=== PATIENT | female | born 1985 | race Caucasian/White ===

== ENCOUNTER 2021-08-24 20:20 | Emergency (ER) | payer OTHER, SELFPAY ==
[2021-08-24 20:22] VITALS: BP 137/100; PULSE 70; RESP 20; TEMP 36.2; O2SAT 100
[2021-08-24 20:39] LABS: Basophils Percent Auto 0.2 % (0.2-1.2); Hematocrit 40.3 % (37.0-47.0); Hemoglobin 13.2 g/dL (12.0-15.0); Immature Granulocyte Absolute 0.01 K/mm3 (0.00-0.031); Immature Granulocyte Percent A 0.2 % (0-0.5); Lymphocytes Absolute Auto 1.23 K/mm3 (0.9-3.2); Lymphocytes Percent Auto 18.7 % (18.3-44.2); Mean Corpuscular HGB Conc 32.8 g/dl (32-36); Mean Corpuscular Volume 91.6 fl (80-100); Mean Platelet Volume 9.7 fl (7.4-10.4); Monocytes Absolute Auto 0.6 K/mm3 (0.1-0.6); Neutrophils Absolute Auto 4.7 K/mm3 (1.3-6.7); Neutrophils Percent Auto 71.9 % (45.5-73.1); Platelet Count Result 190 k/mm3 (150-375); Red Cell Distribution Width 13.7 % (11.5-14.5); White Blood Count 6.6 K/mm3 (4.5-10.0)
[2021-08-24 20:49] LABS: Alanine Aminotransferase 17 U/L (6-35); Albumin Level 4.5 g/dL (3.5-5.1); Alkaline Phosphatase 84 U/L (38-126); Anion Gap 7 mmol/L (8-16); Aspartate Amino Transferase 22 U/L (14-36); Bilirubin,Total 0.2 mg/dL (0.2-1.3); Blood Urea Nitrogen 14 mg/dL (7-17); Calcium 8.9 mg/dL (8.4-10.2); Carbon Dioxide 20 mmol/L (22-30); Chloride 109 mmol/L (98-107); Estimated Glomerular Filt Rate > 60; Glucose 99 mg/dL (65-110); Lipase 44 U/L (23-300); Potassium 3.8 mmol/L (3.4-5.0); Sodium 136 mmol/L (137-145)
[2021-08-24 21:18] LABS: Appearance Urine Clear (Clear); Bilirubin Urine Negative (Negative); Color Urine Yellow (Yellow); Glucose Urine UA Negative (Negative); Ketones Urine 1+ mg/dL (Negative); Leukocyte Esterase Ur Negative LEU/UL (Negative); Nitrate Urine Negative (Negative); Protein Urine Trace mg/dL (Negative); Specific Grav Ur 1.025 (1.001-1.035); Urobilinogen Urine 0.2 mg/dL (<2.0)
[2021-08-24 21:23] LABS: Bacteria Urine Trace /hpf; Mucus Urine Heavy /lpf; RBC Urine 0-2 /hpf (0-2); Squamous Epithelial Cell Urine Many /hpf (Few); WBC Urine 0-3 /hpf
[2021-08-24 21:26] LABS: Add Urine Microscopic? YES; Blood Urine Trace-Intact (Negative)
[2021-08-24] MEDS: ONDANSETRON INJ 4 MG/2 ML VIAL IV PUSH (22:36)
[2021-08-24] MEDS: SODIUM CHLORIDE 0.9% IV 1,000 ML 999 ML IV CONT (22:36)
[2021-08-24 22:37] VITALS: BP 110/71; PULSE 57; RESP 18; O2SAT 100
--- NOTE | 2021-08-24 22:48 | ED.NAVMDI ---
HPI - Nausea/Vomiting/Diarrhea General Chief complaint: Nausea/Vomiting/Diarrhea Stated complaint: nausea, vomitting Time Seen by Provider: 08/24/21 22:19 History of Present Illness HPI Narrative: 36-year-old female presents emergency room for evaluation of vomiting and diarrhea. Patient states that she was nauseated last night, woke up this morning had multiple episodes of nonbloody nonbilious vomiting. Patient states that she has been experiencing some abdominal cramping. Denies any dysuria or fever. Related Data Home Medications Medication Instructions Recorded Confirmed propranolol 80 mg tablet 80 mg PO BID 01/04/19 01/04/19 Allergies Allergy/AdvReac Type Severity Reaction Status Date / Time metronidazole Allergy Severe Hives / Verified 08/24/21 20:24 Red Face adhesive tape Allergy Unknown Rash Verified 08/24/21 20:24 lactose AdvReac Severe Diarrhea Verified 08/24/21 20:24 Review of Systems Review of Systems: CONSTITUTIONAL: Denies fever, chills, or sweats. EYES: Denies visual changes, redness, or discharge. ENT: Denies rhinorrhea, congestion, sore throat, or otalgia. CARDIOVASCULAR: Denies chest pain, palpitations, or edema. RESPIRATORY: Denies cough or dyspnea. GASTROINTESTINAL: Reports abdominal pain, nausea, vomiting, or diarrhea. GENITOURINARY: Denies dysuria or hematuria. SKIN: Denies rash or itching. MUSCULOSKELETAL: Denies back pain, joint pain, or myalgia. NEUROLOGIC: Denies headache, numbness, dizziness, or weakness. PSYCHIATRIC: Denies anxiety or depression. PMFSH Past Medical History Medical History Kidney stone Surgical History Surgical History History of appendectomy Social History Social History Smoking status: Never smoker Gender identity (if verbalized by the patient): Female Exam Narrative: GENERAL: Well-appearing, well-nourished, no physical limitations, and in no acute distress. HEAD: Normocephalic, atraumatic. EYES: Conjunctivae normal, PERRLA and EOMI. CHEST: Clear to auscultation. No respiratory distress. No wheezes rales or rhonchi. No tenderness. HEART: Regular rate and rhythm. No murmur heard. Normal peripheral pulses. ABDOMEN: Soft, generalized tenderness, nondistended, normal active bowel sounds. BACK: No CVA tenderness EXTREMITIES: Normal range of motion. No edema. No clubbing or cyanosis SKIN: Warm, dry, no rash. No noted wounds NEURO: No focal deficits. Alert and oriented x3. MAEW. CN's II-XI intact bilaterally, normal gait PSYCH: Cooperative. Normal mood and affect. Course Vital Signs Vital signs: Vital Signs Temperature 36.2 C L 08/24/21 20:22 Pulse Rate 70 08/24/21 20:22 Respiratory Rate 20 08/24/21 20:22 Blood Pressure 137/100 H 08/24/21 20:22 Pulse Oximetry 100 08/24/21 20:22 Oxygen Delivery Room Air 08/24/21 20:22 Temperature 36.2 C L 08/24/21 20:22 Pulse Rate 57 L 08/24/21 22:37 Respiratory Rate 18 08/24/21 22:37 Blood Pressure 110/71 08/24/21 22:37 Pulse Oximetry 100 08/24/21 22:37 Oxygen Delivery Room Air 08/24/21 22:37 MDM - Nausea/Vomiting/Diarrhea Lab Data Result diagrams: 08/24/21 20:34 08/24/21 20:34 Labs: Lab Results 08/24/21 08/24/21 08/24/21 Range/Units 20:34 20:34 21:11 WBC 6.6 (4.5-10.0) K/mm3 RBC 4.40 (4.2-5.4) M/mm3 Hgb 13.2 (12.0-15.0) g/dL Hct 40.3 (37.0-47.0) % MCV 91.6 (80-100) fl MCH 30.0 (26-34) pg MCHC 32.8 (32-36) g/dl RDW 13.7 (11.5-14.5) % Plt Count 190 (150-375) k/mm3 MPV 9.7 (7.4-10.4) fl Immature Gran % (Auto) 0.2 (0-0.5) % Neut % (Auto) 71.9 (45.5-73.1) % Lymph % (Auto) 18.7 (18.3-44.2) % Stephenson % (Auto) 9.0 H (2.6-8.5) % Eos % (Auto) 0.0 (0-4.4) % Baso % (Auto) 0.2 (0.2-1.2) % Lymph #
[2021-08-24] MEDS: DICYCLOMINE HCL INJ 20 MG/2 ML VIAL IM (23:02)
[2021-08-24] MEDS: PANTOPRAZOLE SODIUM IV 40 MG VIAL IV PUSH (23:02)
[2021-08-24 23:51] VITALS: BP 105/66; PULSE 54; RESP 18; O2SAT 99
== END 2021-08-24 23:52 | disposition home or self-care (01) ==
PROVIDERS: Emergency Medicine; Emergency Provider Nurse Practitioner Family; PCP Family Medicine
DX: K52.9 Noninfective gastroenteritis and colitis, unspecified (principal); Z87.442 Personal history of urinary calculi
CPT/HCPCS: 36415; 80053; 81001; 81025; 83690; 85025; 96361; 96372; 96374; 96375; 99284; C9113; J0500; J2405; J7030

== ENCOUNTER 2024-06-02 08:46 | Emergency (ER) | payer SELFPAY ==
[2024-06-02 08:48] VITALS: BP 137/68; PULSE 83; RESP 16; TEMP 37.4; O2SAT 100
--- OUTSIDE RECORDS SUMMARY | 2024-06-02 08:49 | XMS_ITS | Clinical Summary ---
Author Organization [facility] Address [address] [place] [id number] Care Team Providers Care Merchandise Buyer Name Role Phone Unknown, Notinfile Primary Care Provider Unavail able Allergies Active Allergy Reactions Criticality Noted Date Comments Adhesive Rash Medium 08/01/2018 Other reaction(s): RED/ITCHY Coconut Oil Flushing (skin),Hives,Itching Medium 12/03/2019 Hives Lactose Stomach upset Low 08/01/2018 n/a Metronidazole Hives Medium 04/02/2018 Hives Sumatriptan Swelling Medium 12/03/2019 Swelling Medications etonogestreL (NEXPLANON) 68 mg implant 68 mg by subdermal route continuously Active tamsulosin (FLOMAX) 0.4 mg extended release capsule Take 1 capsule (0.4 mg total) by mouth daily 10 capsule 2 Active omeprazole (PriLOSEC) 40 mg capsule Take 40 mg by mouth daily 8 Active metoclopramide (REGLAN) 10 mg tablet Take 1 tablet (10 mg total) by mouth every 8 (eight) hours as needed (nausea) 15 tablet 2 Active oxybutynin (DITROPAN) 5 mg tablet Take 1 tablet (5 mg total) by mouth 4 (four) times a day as needed (pain from stent) 20 tablet 2 Active naproxen (NAPROSYN) 500 mg tablet Take 1 tablet (500 mg total) by mouth 2 (two) times a day with meals 60 tablet 4 Active Active Problems Problem Noted Date Diagnosed Date Kidney stone on left side 09/18/2021 DVT prophylaxis 09/18/2021 ASCUS of cervix with negative high risk HPV 03/2019 Nexplanon - January 2020 12/07/2016 Anogenital (venereal) warts 11/19/2015 Gastroesophageal reflux disease 11/19/2015 Encounters Date Type Department Care Team Description 04/02/2024 3:12 PM WORD PROCESSING OPERATOR - 04/02/2024 11:59 PM WORD PROCESSING OPERATOR Hospital Encounter [facility] [address] [place] [address] Pre-employment health screening examination Discharge Disposition: Discharge to home or self care 04/02/2024 Orders Only [facility] [address] [facility] [address] (Third Floor) [place] [address] Waylon Perdomo MD Pre-employment health screening examination (Primary Dx) from Last 3 Months Immunizations Immunization Administration Dates Next Due Hep B, Adolescent or Pediatric 07/06/1996,1995,12/27/1995 MMR 07/18/1992,10/12/1989 Tdap 04/15/2016 Surgical History Surgery Date Site/Laterality Comments BARTHOLIN GLAND CYST EXCISION Right APPENDECTOMY LAPAROSCOPIC LYSIS INTESTINAL ADHESIONS Medical History Medical History Date Comments Heartburn Obesity Hiatal hernia Kidney stone started in 2018 passed about 8 Degenerative disc disease, lumbar Sciatica Bilateral legs Rupture of anterior cruciate ligament of right knee Family History Medical History Relation Name Comments Breast cancer Neg Hx Social History Tobacco Use Types Packs/Day Years Used Date Smoking Tobacco: Never Alcohol Use Standard Drinks/Week Comments Never 0 (1 standard drink = 0.6 oz pur e alcohol) AUDIT-C Answer Date Recorded Q1: How often do you have a drink containing alc ohol? Never 01/16/2020 Average Number of Drinks Not on file 020 Frequency of Binge Drinking Not on file 12/29 Personal Safety Answer Date Recorded Have you ever been in or are you currently in a harmful physical or emotional relationship or is someone making you feel afraid or unsafe? Denies 12/01/2023 Comments No Sex and Gender Information Value Date Recorded Sex Assigned at Not on file Legal Sex Female 3:57 PM CDT Gender Identity Not on file Sexual Orientation Not on file Obstetrics History Para Term AB IAB SAB Ectopic Multiple Livin g Live Births 0 0 0 0 0 0 0 0 0 0 0 Last Filed Vital Signs Vital Sign Reading Time Taken Comments Blood Pressure 128/80 12/01/2023 10:39 AM CDT Pulse 65 12/01/2023 10:39 AM CDT Temperature 36.7 C (98 F) 12/01/2023 8:49 AM CDT Respiratory Rate 18 12/01/2023 10:39 AM CDT Oxygen Saturation 100% 12/01/2023 10:39 AM CDT Inhaled Oxygen Concentration - - Weight 69.6 kg (153 lb 7 oz) 12/01/2023 8:49 AM CDT Height 150 cm (4' 11.06 ) 09/25/2021 7:03 AM CDT Body Mass Index 30.93 09/25/2021 7:03 AM CDT Plan of Treatment Health Maintenance Due Date Last Done Comments Depression Screening 1985 Varicella Vaccines (1 of 2 - 13+ 2-dose series) 06/01/2000 Cervical Cancer Screening 01/15/2021 01/16/2020, Regular Well Visit/Exam 18-64 01/15/2021 01/16/2020 Covid-19 Vaccine ( season) 2023 10/21/2020, 09/30/2020 Influenza Vaccine (#1) 2023 11/28/2014, 2013 DTaP/Tdap/Td Vaccine (7 - Td or Tdap) 04/15/2026 04/15/2016, 07/18/1992, 02/15/1989, Additional history exists Hepatitis B Screening Completed 07/06/1996 , 02/28/1996, 12/27/1995 Hepatitis C Screening Completed 01/26/2018, 016 HPV Vaccines Aged Out No longer eligi ble based on patient's age to complete this topic Pneumococcal vaccine <65 Aged Out No longer eligible based on patient's age to complete this topic Medical Devices Explanted Type Area Engineer Assistant Device Identifier Shelf Expiration Date Model / Serial / Lot [employer] Universa 6fr 20cm Radiopaque Positioner Monofilament Tether 2 [id number] - [id number] Explanted:Qty: 1 on 09/18/2021 at [facility] Left: Ureter [employer] [id number] 08/07/2022 [id number] / / [id number] [employer] Universa 6fr 22cm Radiopaque Positioner Monofilament Tether 2 [id number] - [id number] Implanted:Qty: 1 on 09/18/2021 by Melonie Pastrana MD at [facility] Explanted:Qty: 1 on 09/30/2021 by Blake Sr MD Left: Ureter [employer] [id number] 10/30/2023 [id number] / / [id number] Procedures Procedure Name Priority Date/Time Associated Diagnosis Comments VARICELLA ZOSTER ANTIBODY, IGG Routine 04/02/2024 2:36 PM WORD PROCESSING OPERATOR Pre-employment health screening examination T-SPOT.TB Routine 04/02/2024 2:36 PM WORD PROCESSING OPERATOR Pre-employment health screening examination THINPREP PAP WITH HPV Routine 01/16/2020 12:01 AM WORD PROCESSING OPERATOR Encounter for annual routine gynecological examination HEPATITIS C ANTIBODY Routine 01/26/2018 12:26 PM WORD PROCESSING OPERATOR from Last 3 Months or Most Recently Relevant to Health Maintenance Results * T-SPOT.TB Blood (04/02/2024 2:36 PM WORD PROCESSING OPERATOR) T-SPOT.TB Negative SeeBelow Comment: Normal Value: Negative A negative test result does not exclude the possibility of exposure to or infection with Mycobacterium tuberculosis (M. tuberculosis). Patients with recent exposure to TB infected individuals exhibiting a negative T-SPOT.TB result should be considered for retesting within 6 weeks or if other relevant clinical symptoms indicate. Results from T-SPOT.TB testing must be used in conjunction with each individual's epidemiological history, current medical status, and results of other diagnostic evaluations. The T-SPOT.TB test is qualitative and results are reported as positive, borderline or negative, given that the test controls perform as expected. In line with the Centers for Disease Control and Prevention's 2010 recommendation to report quantitative measurements alongside the qualitative result, the laboratory provides spot counts for informational purposes only. The T-SPOT.TB test should not be interpreted as a quantitative test. T-SPOT.TB Panel A Spot Count 0 [facility] T-SPOT.TB Panel B Spot Count 0 [facility] T-SPOT.TB Negative Control Passed [facility] T-SPOT.TB Positive Control Passed [facility] Comment: Test Performed at: [facility] [address] [place] [address] EL STEINER,PHD Blood 04/02/2024 2:36 PM WORD PROCESSING OPERATOR 04/02/2024 5:27 PM WORD PROCESSING OPERATOR Narrative [facility] - 04/04/2024 12:52 PM WORD PROCESSING OPERATOR Patient is employed by/enrolled at:->[facility] Waylon Perdomo MD LAB MICROBIOLOGY - GENERAL OR DERABLES Final Result [facility] [place] [address] * Varicella Zoster IgG antibody Blood (04/02/2024 2:36 PM WORD PROCESSING OPERATOR) Pathologist [facility] VZV IgG Reactive Reactive Comment:Reactive: Results hubbard ggest response to immunization or prior exposure to the virus. Blood 04/02/2024 2:36 PM WORD PROCESSING OPERATOR 04/02/2024 3:45 PM WORD PROCESSING OPERATOR Narrative [facility] - 04/03/2024 9:56 AM WORD PROCESSING OPERATOR Patient is employed by/enrolled at:->[facility] Waylon Perdomo MD LAB MICROBIOLOGY - GENERAL OR DERABLES Final Result [facility] [place] [address] * (ABNORMAL) ThinPrep Pap with HPV (01/16/2020 12:01 AM WORD PROCESSING OPERATOR) 01/16/2020 12:0 1 AM WORD PROCESSING OPERATOR 01/18/2020 9:18 AM WORD PROCESSING OPERATOR Narrative [facility] - 01/29/2020 1:03 PM WORD PROCESSING OPERATOR [facility] Department of Pathology [address] [place] [address] [phone] Final Report with Addendum Patient Name: MELLY OLIVAREZ Address: [address] [address] Gender: F : 1985 (Age: 34) Service: Laboratory Location: Lab Hospital #: [id number] Patient Type: Ref Lab Taken: 01/16/2020 Received: 01/18/2020 Accessioned:: 01/21/2020 Reported: 01/29/2020 Physician(s): Dr. Jose Lizama M.D. [facility] Diagnosis: Source of Specimen: Screening ThinPrep Imaged Pap w/HPV Specimen Adequacy: - Specimen satisfactory for interpretation; endocervical/transformation zone component absent or insufficient General Category: - Epithelial cell abnormality Interpretation/Results: - Atypical squamous cells of undetermined significance - Fungal organisms present, morphologically consistent with rocio species EDNA Cabrera(ASCP) Rahul Cerna M.D. Report Electronically Reviewed and Signed Out By Rahul Cerna M.D. 01/29/2020 13:03:46 Addenda: HPV Test Interpretation NEGATIVE for types 16, 18, 31, 33, 35, 39, 45, 51, 52, 56, 58, 59, 66 and 68. Test performed utilizing Gen-Probe Aptima assay. EDNA Hagan(ASC) Report Electronically Reviewed and Signed Out By [facility]) 01/22/2020 09:44:50 Specimen(s) Received: A: Screening ThinPrep Imaged Pap w/HPV Clinical History: Contraceptive History: control implant: Nexplanon The Pap test is a screening test used to aid in the detection of cervical cancer and its precursors. It should not be the sole means by which malignant and premalignant lesions are diagnosed. Both false negative and false positive results may occur. It also has poor sensitivity for the detection of endometrial lesions and should not be used to evaluate suspected endometrial abnormalities. For these reasons it is most important to obtain Pap tests at regular intervals. The performance characteristics of some immunohistochemical stains, fluorescence in-situ hybridization tests and immunophenotyping by flow cytometry cited in this report (if any) were determined by the Surgical Pathology Department at [facility] as part of an ongoing senior quality technician program and in compliance with federally mandated regulations drawn from the Clinical Laboratory Improvement Act of 1988 (CLIA '88). Some of these tests rely on the use of analyte specific reagents and are subject to specific labeling requirements by the US Food and Drug Administration. Such diagnostic tests may only be performed in a facility that is certified by the Department of Health and Human Services as a high complexity laboratory under CLIA '88. The FDA has determined that such clearance or approval is not necessary. This test is used for clinical purposes. It should not be regarded as investigational or for research. Nevertheless, federal rules concerning the medical use of analyte specific reagents require that the following disclaimer be attached to the report: This test was developed and its performance characteristics determined by the Surgical Pathology Department [facility]. It has not been cleared or approved by the U. S. Food and Drug Administration. Jose Lizama MD LAB CYTOLOGY ORDERAB[place] [address], [facility] [phone] * Hepatitis C antibody (01/26/2018 12:26 PM WORD PROCESSING OPERATOR) Hep C Ab NONREACT NONREACTIVE 01/26/2018 8:13 PM WORD PROCESSING OPERATOR [facility] HISTORICAL RESULTS Comment: Siemens BlueseedaurXP using ERROL (chemiluminescent immunoassay) technology. NONREACTIVE: Antibodies to Hepatitis C not detected. This does not exclude early acute Hepatitis C infection, possibility of exposure to Hepatitis C, antibodies below detection limit, or to lack of antibody reactivity to the antigen used in this assay. EQUIVOCAL: Antibodies to Hepatitis C may or may not be present. Sample to be confirmed by real-time PCR method. REACTIVE: Antibodies to Hepatitis C detected.Sample to be confirmed by real-time PCR method. 01/26/2018 12:2 6 PM WORD PROCESSING OPERATOR 01/26/2018 12:28 PM WORD PROCESSING OPERATOR Jose Lizama MD LAB MICROBIOLOGY - GENERAL ORDERABLES Final Result [facility] HISTORICAL RESULTS from Last 3 Months or Most Recently Relevant to Health Maintenance Insurance [facility] Member Subscriber Plan / Payer (Ef fective 2021-Present) Name:Melly Olivarez Relation to Subscriber:Self Name:Melly Olivarez Payer ID:[id number] (NAIC) Type:[facility] H[employer]/PPO Address: [place] [id number] [place] [address] IDMS Advance Directives For more information, please contact: [phone] * Full Code (Latest Code Status on File) Date Activated Date Inactivated Comments 09/18/2021 1:50 PM 09/19/2021 3:09 PM Care Teams Merchandise Buyer Relationship Specialty Start Date End Date Unknown, Notinfile PCP - General 12/01/23
--- OUTSIDE RECORDS SUMMARY | 2024-06-02 08:49 | XMS_ITS | Encounter Summary ---
Author Organization [facility] Care Team Providers Care Manager Construction Name Role Phone Kranthi New MD Primary Care Provider [phone] Unknown, Notinfile Primary Care Provider Unavail able Encounter Details Date Type Department Care Team (Latest Contact Info) Description 12/07/2016 Orders Only [facility] Provider, MD Adilene [address] [place] [id number] Social History Tobacco Use Types Packs/Day Years Used Date Smoking Tobacco: Never Assessed Comments Unknown Sex and Gender Information Value Date Recorded Sex Assigned at Not on file Legal Sex Female 3:57 PM CDT Gender Identity Not on file Sexual Orientation Not on file documented as of this encounter Plan of Treatment Not on file documented as of this encounter Procedures Procedure Name Priority Date/Time Associated Diagnosis Comments SCAN - LABS 12/07/2016 12:00 AM CDT documented in this encounter Results * SCAN - LABS (12/07/2016 12:00 AM CDT) Narrative 12/07/2016 12:00 AM CDT Ordered by an unspecified provider. us Historical Provider Final Res ult documented in this encounter Visit Diagnoses Not on filedocumented in this encounter Additional Health Concerns Infection Onset Date Last Indicated Resolved Time COVID: Suspected 08/28/2020 08/28/2020 08/28/2020 5:37 PM CDT documented as of this encounter Care Teams Manager Construction Relationship Specialty Start Date End Date Kranthi New MD [address] [address] PCP - General 04/26/18 12/20/21 Unknown, Notinfile PCP - General 12/01/23 documented as of this encounter
--- OUTSIDE RECORDS SUMMARY | 2024-06-02 08:49 | XMS_ITS | Clinical Summary ---
Author Organization [facility] Address [address], [place] [address] Phone Care Team Providers Care Cash Applications Representative Name Role Phone Unavailable Primary Care Provider Unavailabl e Allergies Active Allergy Reactions Criticality Noted Date Comments Coconut (Cocos Nucifera) 10/21/2020 Bacid 10/21/2020 Metronidazole 10/21/2020 Lactose Stomach Upset Low 08/01/2018 Wound Dressing Adhesive Rash Medium 08/01/2018 Medications Medication Sig Dispensed Refills Start Date End Date Status cyclobenzaprine (FLEXERIL) 10 MG tablet Take 10 mg by mouth 3 (three) times a day if needed for muscle spasms Active Etonogestrel (NEXPLANON SC) Inject under the skin Active omeprazole (PriLOSEC) [address] capsule Take 40 mg by mouth 2 (two) times a day Do not crush or chew. Active ondansetron ODT (ZOFRAN-ODT) 8 MG dispersible tablet Take 8 mg by mouth every 12 (twelve) hours if needed for nausea or vomiting Active NAPROXEN SODIUM PO Take 660 mg by mouth 1-3 times daily Active Active Problems Problem Noted Date Diagnosed Date Kidney lesion Family History Medical History Relation Comments Hyperlipidemia Mother Hypertension Mother Migraine Mother Depression Sister Hypertension Sister Thyroid disease Sister Relation Status Comments Mother Sister Social History Tobacco Use Types Packs/Day Years Used Date Smoking Tobacco: Never Smokeless Tobacco: Never Sex and Gender Information Value Date Recorded Sex Assigned at Not on file Gender Identity Not on file Sexual Orientation Not on file Last Filed Vital Signs Vital Sign Reading Time Taken Comments Blood Pressure 161/101 11/12/2020 10:44 AM CDT Pulse 124 11/12/2020 10:44 AM CDT Temperature 37.4 C (99.3 F) 11/12/2020 10:44 AM CDT Respiratory Rate - - Oxygen Saturation - - Inhaled Oxygen Concentration - - Weight 73 kg (161 lb) 11/12/2020 10:44 AM CDT Height 149.9 cm (4' 11 ) 11/12/2020 10:44 AM CDT Body Mass Index 32.52 11/12/2020 10:44 AM CDT Plan of Treatment Health Maintenance Due Date Last Done Comments Influenza Vaccine (Season Ended) 2024
--- OUTSIDE RECORDS SUMMARY | 2024-06-02 08:49 | XMS_ITS | Clinical Summary ---
Author Organization [facility] Address [address] [place] [address] Care Team Providers Care Lay Up Operator Name Role Phone Kranthi New MD Primary Care Provider Allergies Active Allergy Reactions Criticality Noted Date Comments Tape Rash Low 08/01/2018 Metronidazole Hives 04/02/2018 Lactose GI Upset 08/01/2018 Medications omeprazole 40 MG capsule Take 40 mg by mouth daily. Active propranolol 20 MG tablet Take by mouth 3 (three) times daily. Active cyclobenzaprine 10 MG tablet Take 1 tablet (10 mg total) by mouth 3 (three) times daily as needed. 15 tablet 07/06/2021 Active lidocaine 4 % patch Place 1 patch onto the skin daily. Remove & Discard patch within 12 hours or as directed by 7 patch 07/06/2021 Active Family History Medical History Relation Comments None Father None Mother Relation Status Comments Father Mother Social History Tobacco Use Types Packs/Day Years Used Date Smoking Tobacco: Never Smokeless Tobacco: Never Alcohol Use Standard Drinks/Week Comments Yes 0 (1 standard drink = 0.6 oz pur e alcohol) RARELY Comments No Sex and Gender Information Value Date Recorded Sex Assigned at Not on file Legal Sex Female 7:49 PM CDT Gender Identity Not on file Sexual Orientation Not on file Last Filed Vital Signs Vital Sign Reading Time Taken Comments Blood Pressure 139/90 07/06/2021 8:21 PM CDT Pulse 70 07/06/2021 8:21 PM CDT Temperature 36.6 C (97.8 F) 07/06/2021 6:30 PM CDT Respiratory Rate 16 07/06/2021 8:21 PM CDT Oxygen Saturation 100% 07/06/2021 8:21 PM CDT Inhaled Oxygen Concentration - - Weight 72.6 kg (160 lb) 07/06/2021 6:30 PM CDT Height 149.9 cm (4' 11 ) 07/06/2021 6:30 PM CDT Body Mass Index 32.32 07/06/2021 6:30 PM CDT Plan of Treatment Health Maintenance Due Date Last Done Comments Cervical Cancer Screening Pap Smear (Age 30 to 64) Every 3 Years 1987 Annual Physical 06/01/1990 Hepatitis C 06/01/2005 Cervical Cancer Screening Pap with HPV Testing (Age 30 to 64) Every 5 Years 06/01/2017 Cervical Cancer Screening with HPV 06/01/2017 COVID-19 Vaccine ( season) 2023 10/21/2020, 09/30/2020 Influenza Adult (#1) 2023 11/28/2014, 11/23/19 14 DTaP, Tdap and Td Vaccines (7 - Td or Tdap) 04/15/2026 04/15/2016, 07/18/1992, 02/15/1989, Additional history exists Hepatitis B Vaccines Completed 07/06/1996, 02/28/1996, 12/27/1995 HPV Vaccines Aged Out No longer eligi ble based on patient's age to complete this topic Meningococcal B Vaccine Aged Out No l onger eligible based on patient's age to complete this topic Meningococcal Vaccine Aged Out No shayan toni eligible based on patient's age to complete this topic Pneumococcal Vaccine: Pediatrics (0 to 5 Years) and At-Risk Patients (6 to 64 Years) Aged Out No longer eligible based on patient's age to complete this topic RSV Immunizations Under 20 Months Aged Out No longer eligible based on patient's age to complete this topic Insurance [employer] Care Teams Lay Up Operator Relationship Specialty Start Date End Date Kranthi New MD [address] [address] PCP - General 04/26/15
--- OUTSIDE RECORDS SUMMARY | 2024-06-02 08:49 | XMS_ITS | Referral Summary ---
Author Organization [facility] Address [address] [place] [phone] Care Team Providers Care Beer Brewer Name Role Phone Unknown, Notinfile Primary Care Provider Unavail able Encounters Date Type Department Care Team Description 04/02/2024 3:12 PM ROLLER GOLD LEAF - 04/02/2024 11:59 PM ROLLER GOLD LEAF Hospital Encounter [facility] [address] [place] [address] Pre-employment health screening examination Discharge Disposition: Discharge to home or self care 04/02/2024 Orders Only [facility] [address] [facility] Room 3420 (Third Floor) [place] [address] Waylon Perdomo MD Pre-employment health screening examination (Primary Dx) from Last 3 Months Allergies Active Allergy Reactions Criticality Noted Date [...] (venereal) warts 11/19/2015 Gastroesophageal reflux disease 11/19/2015 Immunizations Immunization Administration Dates Next Due Hep B, Adolescent or Pediatric 07/06/1996,1995,12/27/1995 MMR 07/18/1992,10/12/1989 Tdap 04/15/2016 Social History Tobacco Use Types Packs/Day Years [...] 09/25/2021 7:03 AM CDT Plan of Treatment Not on file Medical Devices Explanted Type Area Flanging Machine Operator Device Identifier Shelf Expiration Date Model / Serial / Lot [employer] Universa 6fr 20cm Radiopaque Positioner Monofilament Tether 2 [id number] - [id number] Explanted:Qty: 1 on 09/18/2021 at [facility] Left: Ureter [employer] [id number] 08/07/2022 [id number] / / [id number] [employer] Universa 6fr 22cm Radiopaque Positioner Monofilament Tether 2 [id number] - [id number] Implanted:Qty: 1 on 09/18/2021 by Melonie Pastrana MD at [facility] Explanted:Qty: 1 on 09/30/2021 by Blake Sr MD Left: Ureter [employer] [id number] 10/30/2023 [id number] / / [id number] Procedures Procedure Name Priority Date/Time Associated Diagnosis Comments VARICELLA ZOSTER ANTIBODY, IGG Routine 04/02/2024 2:36 PM ROLLER GOLD LEAF Pre-employment health screening examination T-SPOT.TB Routine 04/02/2024 2:36 PM ROLLER GOLD LEAF Pre-employment health screening examination THINPREP PAP WITH HPV Routine 01/16/2020 12:01 AM ROLLER GOLD LEAF Encounter for annual routine gynecological examination HEPATITIS C ANTIBODY Routine 01/26/2018 12:26 PM ROLLER GOLD LEAF from Last 3 Months or Most Recently Relevant to Health Maintenance Results * T-SPOT.TB Blood (04/02/2024 2:36 PM ROLLER GOLD LEAF) T-SPOT.TB Negative SeeBelow Comment: Normal Value: Negative [...] test. T-SPOT.TB Panel A Spot Count 0 [facility] T-SPOT.TB Panel B Spot Count 0 [facility] T-SPOT.TB Negative Control Passed [facility] T-SPOT.TB Positive Control Passed [facility] Comment: Test Performed at: [facility] [address] [place] [phone] EL STEINER,PHD Blood 04/02/2024 2:36 PM ROLLER GOLD LEAF 04/02/2024 5:27 PM ROLLER GOLD LEAF Narrative [facility] - 04/04/2024 12:52 PM ROLLER GOLD LEAF Patient is employed by/enrolled at:->[facility] Waylon Perdomo MD LAB MICROBIOLOGY - GENERAL OR DERABLES Final Result [facility] Department [place] [address] * Varicella Zoster IgG antibody Blood (04/02/2024 2:36 PM ROLLER GOLD LEAF) [facility] VZV IgG Reactive Reactive Comment:Reactive: Results hubbard ggest response to immunization or prior exposure to the virus. Blood 04/02/2024 2:36 PM ROLLER GOLD LEAF 04/02/2024 3:45 PM ROLLER GOLD LEAF Narrative [facility] - 04/03/2024 9:56 AM ROLLER GOLD LEAF Patient is employed by/enrolled at:->[facility] us Waylon Perdomo MD LAB MICROBIOLOGY - GENERAL OR DERABLES Final Result [facility] Department [place] [address] * (ABNORMAL) ThinPrep Pap with HPV (01/16/2020 12:01 AM ROLLER GOLD LEAF) 01/16/2020 12:0 1 AM ROLLER GOLD LEAF 01/18/2020 9:18 AM ROLLER GOLD LEAF [facility] - 01/29/2020 1:03 PM ROLLER GOLD LEAF [facility] Department of Pathology [address] [place] [id number] Final Report with Addendum Patient Name: MELLY OLIVAREZ Address: [address] [place] [address] Gender: F : 1985 (Age: 34) Service: Laboratory Location: Lab [facility] #: [id number] Patient Type: Ref Lab Taken: 01/16/2020 Received: 01/18/2020 Accessioned:: 01/21/2020 Reported: 01/29/2020 Physician(s): Dr. Jose Lizama M.D. [facility] Diagnosis: Source of Specimen: Screening ThinPrep Imaged Pap w/HPV Specimen Adequacy: - Specimen satisfactory for interpretation; endocervical/transformation zone component absent or insufficient General Category: - Epithelial cell abnormality Interpretation/Results: - Atypical squamous cells of undetermined significance - Fungal organisms present, morphologically consistent with rocio species Shanika Anne, EDNA(ASCP) Rahul Cerna M.D. Report Electronically Reviewed and Signed Out By Rahul Cerna M.D. 01/29/2020 13:03:46 Addenda: HPV Test Interpretation NEGATIVE for types 16, 18, 31, 33, 35, 39, 45, 51, 52, 56, 58, 59, 66 and 68. Test performed utilizing Gen-Probe Aptima assay. EDNA Hagan(ASC) Report Electronically Reviewed and Signed Out By EDNA Hagan(ASC) 01/22/2020 09:44:50 Specimen(s) Received: A: Screening ThinPrep [...] determined by the Surgical Pathology Department at [facility] as part of an ongoing quality assurance supervisor final program and in compliance with federally mandated [...] characteristics determined by the Surgical Pathology Department [facility]. It has not been cleared or approved by the U. S. Food and Drug Administration. us Jose Lizama MD LAB CYTOLOGY ORDERABLES Fi nal Result [address] [phone] * Hepatitis C antibody (01/26/2018 12:26 PM ROLLER GOLD LEAF) Hep C Ab NONREACT NONREACTIVE 01/26/2018 8:13 PM ROLLER GOLD LEAF [facility] HISTORICAL RESULTS Comment: Siemens CentaurXP using ERROL (chemiluminescent immunoassay) technology. NONREACTIVE: Antibodies [...] real-time PCR method. 01/26/2018 12:2 6 PM ROLLER GOLD LEAF 01/26/2018 12:28 PM ROLLER GOLD LEAF Jose Lizama MD LAB MICROBIOLOGY - GENERAL ORDERABLES Final Result [facility] HISTORICAL RESULTS from Last 3 Months or Most Recently Relevant to Health Maintenance Insurance [facility] Advance Directives For more information, please contact: [phone] * Full Code (Latest Code Status on File) Date Activated Date Inactivated Comments 09/18/2021 1:50 PM 09/19/2021 3:09 PM Care Teams Beer Brewer Relationship Specialty Start Date End Date Unknown, Notinfile PCP - General 12/01/23
--- NOTE | 2024-06-02 08:57 | ED_ITS ---
HPI - General Adult General Chief complaint: Eye Problems Stated complaint: R eyelid swelling Time Seen by Provider: 06/02/24 08:52 Source: patient Mode of arrival: ambulatory Limitations: no limitations History of Present Illness HPI narrative: 39-year-old otherwise healthy male with a complains of pain and swelling right side of her face just above hours. She stated it started as a small pimple woke up this morning wiith swelling,no fever. Onset (ago): day(s) (2) Location: face Radiation: non-radiation Severity: mild Exacerbating factors: none Associated symptoms: denies other symptoms Related Data Home Medications ?Medication ?Instructions ?Recorded ?Confirmed ?Last Taken ?Type propranolol 80 mg tablet 80 mg PO BID 01/04/19 01/04/19 01/04/19 History Allergies Allergy/AdvReac Type Severity Reaction Status Date / Time metronidazole Allergy Severe Hives / Verified 06/02/24 08:53 Red Face adhesive tape Allergy Unknown Rash Verified 08/24/21 20:24 lactose AdvReac Severe Diarrhea Verified 06/02/24 08:53 Review of Systems Review of Systems: All systems reviewed & are unremarkable except as noted in HPI and below Constitutional: Constitutional: Reports no additional constitutional complaints Eyes: Eyes: Reports no additional eye complaints ENT: Reports system reviewed and no additional complaints, except as documented Cardiovascular: Cardiovascular: Reports no additional cardiovascular complaints Respiratory: Respiratory: Reports no additional respiratory complaints Gastrointestinal: Gastrointestinal: Reports no additional gastrointestinal complaints Musculoskeletal: Musculoskeletal: Reports no additional musculoskeletal complaints [facility] Past Medical History Medical History Kidney stone Surgical History Surgical History History of appendectomy Social History Social History Smoking status: Never smoker Gender identity (if verbalized by the patient): Female Exam Narrative: GENERAL: Well-appearing, well-nourished, and in no acute distress. HEAD: Normocephalic, atraumatic. has a small boil on to the right side between the eye brow , EYES: PERRLA and EOMI.very minimal swelling around the area ENT: Nares clear, no rhinorrhea or epistaxis. Mucous membranes moist. NECK: Supple. CHEST: Clear to auscultation. No respiratory distress. HEART: Regular rate and rhythm. No murmur heard. EXTREMITIES: Normal range of motion. No edema. SKIN: Warm, dry, no rash. NEURO: No focal deficits. Alert and oriented x3. PSYCH: Normal mood and affect. Course Course Emergency Course: Informed patient about the diagnosis advised to take antibiotic as prescribed warm compress to the area gave him fitted swelling gets worse in advised to return to the ER for IV antibiotic Vital Signs Vital signs: Vital Signs Temperature 37.4 C 06/02/24 08:48 Pulse Rate 83 06/02/24 08:48 Respiratory Rate 16 06/02/24 08:48 Blood Pressure 137/68 06/02/24 08:48 Pulse Oximetry 100 06/02/24 08:48 Oxygen Delivery Room Air 06/02/24 08:48 Temperature 37.4 C 06/02/24 08:48 Pulse Rate 83 06/02/24 08:48 Respiratory Rate 16 06/02/24 08:48 Blood Pressure 137/68 06/02/24 08:48 Pulse Oximetry 100 06/02/24 08:48 Oxygen Delivery Room Air 06/02/24 08:48 Medical Decision Making Vital Signs Vital Signs: Vital Signs Temperature 37.4 C 06/02/24 08:48 Pulse Rate 83 06/02/24 08:48 Respiratory Rate 16 06/02/24 08:48 Blood Pressure 137/68 06/02/24 08:48 Pulse Oximetry 100 06/02/24 08:48 Oxygen Delivery Room Air 06/02/24 08:48 Temperature 37.4 C 06/02/24 08:48 Pulse Rate 83 06/02/24 08:48 Respiratory Rate 16 06/02/24 08:48 Blood Pressure 137/68 06/02/24 08:48 Pulse Oximetry 100 06/02/24 08:48 Oxygen Delivery Room Air 06/02/24 08:48 Discharge Plan Discharge Clinical Impression: Boil, face Patient Disposition: Home, Self-Care Condition: Stable Instructions: Antibiotic Form, Cellulitis (ED) Additional Instructions: Take antibiotics as prescribed , Warm compress to the area , if there is increased swelling and high fever , return to the Er Patient Language: Micronesian Prescriptions: New doxycycline hyclate 100 mg tablet 100 mg PO BID Qty: 14 0RF No Action ondansetron 4 mg tablet,disintegrating 4 mg PO Q8H Qty: 10 0RF propranolol 80 mg tablet 80 mg PO BID ondansetron HCl [Zofran] 4 mg tablet 4 mg PO Q8H Qty: 14 0RF acetaminophen [Tylenol] 325 mg capsule 325 mg PO Q6-8H 7 Days Qty: 30 0RF Follow-up/Referrals: Shaq,Kranthi Chaney MD [Primary Care Provider] - Time of Disposition: 09:02
--- OUTSIDE RECORDS SUMMARY | 2024-06-02 09:13 | XMS_ITS | Clinical Summary ---
Author Organization [facility] Address [address], [place] [address] Phone Care Team Providers Care Meteorology Instructor Name Role Phone Unavailable Primary Care Provider [...]
--- OUTSIDE RECORDS SUMMARY | 2024-06-02 09:13 | XMS_ITS | Clinical Summary ---
Author Organization [facility] Address [address] [place] [address] Care Team Providers Care Finishing Range Operator Name Role Phone Kranthi New MD Primary Care Provider [phone] Allergies Active Allergy Reactions Criticality Noted Date [...] [employer] Care Teams Finishing Range Operator Relationship Specialty Start Date End Date Kranthi New MD [address] [address] PCP - General 04/26/15
--- OUTSIDE RECORDS SUMMARY | 2024-06-02 09:13 | XMS_ITS | Clinical Summary ---
Author Organization [facility] Address [address] [place] [phone] Care Team Providers Care Lockstitch Machine Operator Name Role Phone Unknown, Notinfile Primary Care [...] Department Care Team Description 04/02/2024 3:12 PM PET TRAINER - 04/02/2024 11:59 PM PET TRAINER Hospital Encounter [facility] [address] [place] [address] Pre-employment health screening examination Discharge Disposition: Discharge to home or self care 04/02/2024 Orders Only [facility] Healthcare Occupatiuonal Health [address] [facility] [address] (Third Floor) [place] [address] Waylon Perdomo MD Pre-employment health screening examination [...] this topic Medical Devices Explanted Type Area Software Technical Lead Device Identifier Shelf Expiration Date Model / Serial / Lot [employer] Universa 6fr 20cm Radiopaque Positioner Monofilament Tether 2 [id number] - [id number] Explanted:Qty: 1 on 09/18/2021 at [facility] Left: Ureter [employer] [id number] 08/07/2022 [id number] / / [id number] [employer] Universa 6fr 22cm Radiopaque Positioner Monofilament Tether 2 [id number] - [id number] Implanted:Qty: 1 on 09/18/2021 by Melonie Pastrana MD at [facility] Explanted:Qty: 1 on 09/30/2021 by Blake Sr MD Left: Ureter [employer] [id number] 10/30/2023 [id number] / / [id number] Procedures Procedure Name Priority Date/Time Associated Diagnosis Comments VARICELLA ZOSTER ANTIBODY, IGG Routine 04/02/2024 2:36 PM PET TRAINER Pre-employment health screening examination T-SPOT.TB Routine 04/02/2024 2:36 PM PET TRAINER Pre-employment health screening examination THINPREP PAP WITH HPV Routine 01/16/2020 12:01 AM PET TRAINER Encounter for annual routine gynecological examination HEPATITIS C ANTIBODY Routine 01/26/2018 12:26 PM PET TRAINER from Last 3 Months or Most Recently Relevant to Health Maintenance Results * T-SPOT.TB Blood (04/02/2024 2:36 PM PET TRAINER) T-SPOT.TB Negative SeeBelow Comment: Normal Value: Negative [...] test. T-SPOT.TB Panel A Spot Count 0 [facility] T-SPOT.TB Panel B Spot Count 0 [facility] T-SPOT.TB Negative Control Passed [facility] T-SPOT.TB Positive Control Passed [facility] Comment: Test Performed at: [facility] [address] [place] [address] EL STEINER,PHD Blood 04/02/2024 2:36 PM PET TRAINER 04/02/2024 5:27 PM PET TRAINER Narrative [facility] - 04/04/2024 12:52 PM PET TRAINER Patient is employed by/enrolled at:->[facility] Waylon Perdomo MD LAB MICROBIOLOGY - GENERAL OR DERABLES Final Result [facility] Department [place] [address] * Varicella Zoster IgG antibody Blood (04/02/2024 2:36 PM PET TRAINER) Pathologist [facility] VZV IgG Reactive Reactive Comment:Reactive: Results hubbard ggest response to immunization or prior exposure to the virus. Blood 04/02/2024 2:36 PM PET TRAINER 04/02/2024 3:45 PM PET TRAINER Narrative [facility] - 04/03/2024 9:56 AM PET TRAINER Patient is employed by/enrolled at:->[facility] Waylon Perdomo MD LAB MICROBIOLOGY - GENERAL OR DERABLES Final Result [facility] [place] [address] * (ABNORMAL) ThinPrep Pap with HPV (01/16/2020 12:01 AM PET TRAINER) 01/16/2020 12:0 1 AM PET TRAINER 01/18/2020 9:18 AM PET TRAINER Narrative [facility] - 01/29/2020 1:03 PM PET TRAINER [facility] Department of Pathology [address] [place] [phone] Final Report with Addendum Patient Name: MELLY OLIVAREZ Address: [address] [address] Gender: F : 1985 (Age: 34) Service: Laboratory Location: Lab Hospital #: [id number] Patient Type: Ref Lab Taken: 01/16/2020 Received: 01/18/2020 Accessioned:: 01/21/2020 Reported: 01/29/2020 Physician(s): Dr. Jose Lizama M.D. [facility] Diagnosis: Source of Specimen: Screening ThinPrep Imaged [...] Electronically Reviewed and Signed Out By [facility]) 01/22/2020 09:44:50 Specimen(s) Received: A: Screening ThinPrep [...] determined by the Surgical Pathology Department at [facility] as part of an ongoing quality assurance nurse program and in compliance with federally mandated [...] characteristics determined by the Surgical Pathology Department [facility]. It has not been cleared or approved by the U. S. Food and Drug Administration. Jose Lizama MD LAB CYTOLOGY ORDERABLES [place] [address], [facility] [phone] * Hepatitis C antibody (01/26/2018 12:26 PM PET TRAINER) Hep C Ab NONREACT NONREACTIVE Comment: Siemens [employer] CorporationaurXP using ERROL (chemiluminescent immunoassay) technology. NONREACTIVE: Antibodies [...] real-time PCR method. 01/26/2018 12:2 6 PM PET TRAINER 01/26/2018 12:28 PM PET TRAINER Jose Lizama MD LAB MICROBIOLOGY - GENERAL ORDERABLES Final Result [facility] HISTORICAL RESULTS from Last 3 Months or Most Recently Relevant to Health Maintenance Insurance [facility] H[facility]/PPO Address: [place] [id number] [place] [address] [facility] H[facility]/PPO Address: [address] [place] [id number] [employer] Advance Directives For more information, please contact: [phone] * Full Code (Latest Code Status on File) Date Activated Date Inactivated Comments 09/18/2021 1:50 PM 09/19/2021 3:09 PM Care Teams Lockstitch Machine Operator Relationship Specialty Start Date End Date Unknown, Notinfile PCP - General 12/01/23
--- OUTSIDE RECORDS SUMMARY | 2024-06-02 09:13 | XMS_ITS | Referral Summary ---
Author Organization [facility] Address [address] [place] [id number] Care Team Providers Care Local Operator Name Role Phone Unknown, Notinfile Primary Care Provider Unavail able Encounters Date Type Department Care Team Description 04/02/2024 3:12 PM COLD MILL OPERATOR - 04/02/2024 11:59 PM COLD MILL OPERATOR Hospital Encounter [facility] [address] [place] [address] Pre-employment health screening examination Discharge Disposition: Discharge to home or self care 04/02/2024 Orders Only [facility] [address] [facility] Room [address] (Third Floor) [place] [address] Waylon Perdomo MD Pre-employment health screening examination [...] on file Medical Devices Explanted Type Area Rod Mill Tender Device Identifier Shelf Expiration Date Model / Serial / Lot [employer] Universa 6fr 20cm Radiopaque Positioner Monofilament Tether 2 [id number] - [id number] Explanted:Qty: 1 on 09/18/2021 at [facility] Left: Ureter [employer] [id number] 08/07/2022 [id number] / / [id number] [employer] Universa 6fr 22cm Radiopaque Positioner Monofilament Tether 2 [id number] - [id number] Implanted:Qty: 1 on 09/18/2021 by Melonie Pastrana MD at [facility] Explanted:Qty: 1 on 09/30/2021 by Blake Sr MD Left: Ureter [employer] [id number] 10/30/2023 [id number] / / [id number] Procedures Procedure Name Priority Date/Time Associated Diagnosis Comments VARICELLA ZOSTER ANTIBODY, IGG Routine 04/02/2024 2:36 PM COLD MILL OPERATOR Pre-employment health screening examination T-SPOT.TB Routine 04/02/2024 2:36 PM COLD MILL OPERATOR Pre-employment health screening examination THINPREP PAP WITH HPV Routine 01/16/2020 12:01 AM COLD MILL OPERATOR Encounter for annual routine gynecological examination HEPATITIS C ANTIBODY Routine 01/26/2018 12:26 PM COLD MILL OPERATOR from Last 3 Months or Most Recently Relevant to Health Maintenance Results * T-SPOT.TB Blood (04/02/2024 2:36 PM COLD MILL OPERATOR) T-SPOT.TB Negative SeeBelow Comment: Normal Value: [...] test. T-SPOT.TB Panel A Spot Count 0 [facility] T-SPOT.TB Panel B Spot Count 0 [facility] T-SPOT.TB Negative Control Passed [facility] T-SPOT.TB Positive Control Passed [facility] Comment: Test Performed at: [facility] [address] [place] [phone] EL STEINER,PHD Blood 04/02/2024 2:36 PM COLD MILL OPERATOR 04/02/2024 5:27 PM COLD MILL OPERATOR Narrative [facility] - 04/04/2024 12:52 PM COLD MILL OPERATOR Patient is employed by/enrolled at:->[facility] Waylon Perdomo MD LAB MICROBIOLOGY - GENERAL OR DERABLES Final Result [facility] Department [place] [address] * Varicella Zoster IgG antibody Blood (04/02/2024 2:36 PM COLD MILL OPERATOR) [facility] VZV IgG Reactive Reactive Comment:Reactive: Results hubbard ggest response to immunization or prior exposure to the virus. Blood 04/02/2024 2:36 PM COLD MILL OPERATOR 04/02/2024 3:45 PM COLD MILL OPERATOR Narrative [facility] - 04/03/2024 9:56 AM COLD MILL OPERATOR Patient is employed by/enrolled at:->[facility] us Waylon Perdomo MD LAB MICROBIOLOGY - GENERAL OR DERABLES Final Result [facility] Department [place] [address] * (ABNORMAL) ThinPrep Pap with HPV (01/16/2020 12:01 AM COLD MILL OPERATOR) 01/16/2020 12:0 1 AM COLD MILL OPERATOR 01/18/2020 9:18 AM COLD MILL OPERATOR [facility] - 01/29/2020 1:03 PM COLD MILL OPERATOR [facility] Department of Pathology [address] [place] [id number] Final Report with Addendum Patient Name: MELLY OLIVAREZ Address: [address] [place] [address] Gender: F : 1985 (Age: 34) Service: Laboratory Location: Lab [facility] #: [id number] Patient Type: Ref Lab Taken: 01/16/2020 Received: 01/18/2020 Accessioned:: 01/21/2020 Reported: 01/29/2020 Physician(s): Dr. Jose Lizama M.D. [facility] Diagnosis: Source of Specimen: Screening ThinPrep Imaged [...] determined by the Surgical Pathology Department at [facility] as part of an ongoing quality intern program and in compliance with federally mandated [...] characteristics determined by the Surgical Pathology Department [facility]. It has not been cleared or approved by the U. S. Food and Drug Administration. us Jose Lizama MD LAB CYTOLOGY ORDERABLES Fi nal Result [address] [phone] * Hepatitis C antibody (01/26/2018 12:26 PM COLD MILL OPERATOR) Hep C Ab NONREACT NONREACTIVE 01/26/2018 8:13 PM COLD MILL OPERATOR [facility] HISTORICAL RESULTS Comment: Siemens CentaurXP using ERROL [...] real-time PCR method. 01/26/2018 12:2 6 PM COLD MILL OPERATOR 01/26/2018 12:28 PM COLD MILL OPERATOR Jose Lizama MD LAB MICROBIOLOGY - GENERAL ORDERABLES Final Result [facility] HISTORICAL RESULTS from Last 3 Months or Most Recently Relevant to Health Maintenance Insurance [employer] [facility] [employer] Advance Directives For more information, please contact: [phone] * Full Code (Latest Code Status on File) Date Activated Date Inactivated Comments 09/18/2021 1:50 PM 09/19/2021 3:09 PM Care Teams Local Operator Relationship Specialty Start Date End Date Unknown, Notinfile PCP - General 12/01/23
--- OUTSIDE RECORDS SUMMARY | 2024-06-02 09:13 | XMS_ITS | Encounter Summary ---
Author Organization [facility] Care Team Providers Care Foam Molder Name Role Phone Kranthi New MD Primary Care Provider [phone] Unknown, Notinfile Primary Care Provider Unavail able Encounter Details Date Type Department Care Team (Latest Contact Info) Description 12/07/2016 Orders Only [facility] Provider, MD Adilene [address] [place] [id number] Social History Tobacco Use Types Packs/Day [...] documented as of this encounter Care Teams Foam Molder Relationship Specialty Start Date End Date Kranthi New MD [address] [address] PCP - General 04/26/18 12/20/21 Unknown, Notinfile PCP - General 12/01/23 documented as of this encounter
== END 2024-06-02 09:17 | disposition home or self-care (01) ==
LOC: ANHED 09:11
PROVIDERS: Emergency Provider Family Medicine; PCP Family Medicine
DX: H00.031 Abscess of right upper eyelid (principal); Z87.442 Personal history of urinary calculi
CPT/HCPCS: 99283